=== PATIENT | female | born 1975 | race Caucasian/White ===

== ENCOUNTER → 2019-03-03 18:37 | Outpatient (CLI) | payer OTHER | END | disposition home or self-care (01) | LOC: D.MAMMO 01-27 15:30 | PROVIDERS: ATTEND Obstetrics & Gynecology | DX: Z12.31 Encounter for screening mammogram for malignant neoplasm of breast (principal) ==

== ENCOUNTER 2020-09-06 14:30 | Outpatient (CLI) | payer OTHER ==
[2020-01-03 11:41] VITALS: BMI 28.9
[~2020-09-06 14:30] MED LIST: AQUAPHOR HEALIN50 GM TOPICAL; BACITRACIN 15 G15 GM TOPICAL; ZOLOFT50 MG PO
== END 2020-09-06 23:59 | disposition home or self-care (01) ==
LOC: D.MAMMO 14:30
PROVIDERS: ATTEND Nurse Practitioner Family
DX: Z12.31 Encounter for screening mammogram for malignant neoplasm of breast (principal)